=== PATIENT | female | born 1995 | race Caucasian/White ===

== ENCOUNTER 2016-10-12 14:47 | Emergency (ER) | payer OTHER | END 2016-10-12 15:21 | disposition home or self-care (01) | LOC: ED 14:47 | DX: T22.211A Burn of second degree of right forearm, initial encounter (principal); X13.1XXA Other contact with steam and other hot vapors, initial encounter; Y93.G1 Activity, food preparation and clean up; Y92.89 Other specified places as the place of occurrence of the external cause; Y99.0 Civilian activity done for income or pay ==